=== PATIENT | female | born 1955 | race Caucasian/White ===

== ENCOUNTER 2018-01-09 15:24 | Outpatient (CLI) | payer OTHER ==
--- NOTE | 2018-01-09 15:50 | RAD ---
THREE VIEWS RIGHT FOOT: COMPARISON: None. HISTORY: Fall with injury 1 week ago with right foot pain. FINDINGS: Three views right foot show no evidence of acute fracture or dislocation. No degenerative changes ar e seen. IMPRESSION: No evidence of acute osseous abnormality. POS: MISHA
--- NOTE | 2018-01-09 15:57 | RAD ---
RIGHT KNEE THREE VIEW: 01/09/18 HISTORY: Fall one week ago. COMPARISON: None. FINDINGS: There is no significant joint effusion. No fracture or malalignment. There are large medial compartme nt osteophytes and lateral compartment osteophytes as well as patellofemoral compartment osteophytes. There is a benign appearing chondroid lesion in the fibular head. No endosteal scalloping or erosions . IMPRESSION: 1. 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 2. 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 Followup can be obtained in one year. POS: MISHA
== END 2018-01-09 15:25 | disposition home or self-care (01) ==
LOC: MADRAD 15:24
PROVIDERS: ATTEND Family Medicine
DX: S99.921A Unspecified injury of right foot, initial encounter (principal); S89.91XA Unspecified injury of right lower leg, initial encounter; M17.11 Unilateral primary osteoarthritis, right knee; M89.9 Disorder of bone, unspecified; W19.XXXA Unspecified fall, initial encounter

== ENCOUNTER 2018-05-08 07:57 | Outpatient (CLI) | payer OTHER ==
--- NOTE | 2018-05-08 09:24 | ULT ---
RIGHT UPPER QUADRANT ULTRASOUND: HISTORY: Right upper quadrant pain. FINDINGS: The liver demonstrates homogeneous echotexture without focal mass or intrahepatic ductal dilatation. No gallstones, gallbladder wall thickening, or pericholecystic fluid is seen. The automation mechanic repor ts a positive Marley's sign. The common duct measures 3 mm in diameter. The pancreas is partially o bscured by bowel gas. The visualized portions of the pancreas, aorta, and IVC are unremarkable. The right kidney is normal. No free fluid is seen in the Morison's pouch. IMPRESSION: 1. No evidence of cholelithiasis. 2. [employer] Intern[employer] reports a positive Marley's sign. If there is concern for acute acalculus cholecysti tis, further evaluation with HIDA scan should be performed. POS: MISHA
== END 2018-05-08 07:58 | disposition home or self-care (01) ==
LOC: MADULT 07:57
PROVIDERS: ATTEND Internal Medicine
DX: R10.11 Right upper quadrant pain (principal)
CPT/HCPCS: 76705